=== PATIENT | male | born 1965 | race Caucasian/White ===

== ENCOUNTER 2019-08-31 13:48 | Emergency (ER) | payer MEDICAID, OTHER ==
[~2019-08-31] VITALS: Ht 170.2 cm; Wt 79.7 kg
[2019-08-31] MEDS ORDERED: predniSONE 20 mg tablet PO ONE (15:10)
[2019-08-31] MEDS ORDERED: CEPH250T PO (15:58)
[2019-08-31] MEDS ORDERED: PRED20TA PO (15:58)
[2019-08-31 16:48] VITALS: BP 137/77
== END 2019-08-31 16:49 | disposition home or self-care (01) ==
LOC: ER 13:49
DX: L97.829 Non-pressure chronic ulcer of other part of left lower leg with unspecified severity (principal); F17.200 Nicotine dependence, unspecified, uncomplicated; Z79.899 Other long term (current) drug therapy
CPT/HCPCS: 93971; 99284; J7512